=== PATIENT | female | born 1980 | race Caucasian/White ===

== ENCOUNTER 2017-03-30 19:14 | Emergency (ER) | payer OTHER ==
[~2017-03-30] VITALS: Ht 162.6 cm; Wt 58.0 kg
[~2017-03-30 19:14] MED LIST: IBUPROFEN PO; KETOPROFEN; NIFEREX-150150 MG PO; VICODIN 5/500 T1 TAB PO
== END 2017-03-31 02:11 | disposition left against medical advice (07) ==
LOC: CED 19:14
DX: Z53.21 Procedure and treatment not carried out due to patient leaving prior to being seen by health care provider (principal)